=== PATIENT | female | born 1995 | race Caucasian/White ===

== ENCOUNTER 2017-02-04 23:06 | Emergency (ER) | payer BC, OTHER ==
[~2017-02-04 23:06] MED LIST: Sodium Chloride 0.9% 1,000 ML BAG ONE
[2017-02-04 23:49] LABS: Bilirubin Negative (Negative); Blood, Urine Small (Negative); Clarity Cloudy (Clear); Glucose, Urine (Dipstick) Negative (Negative); Leukocyte Trace (Negative); Nitrite Positive (Negative); Protein, Urine (Dipstick) Negative (Neg-Trace); Urobilinogen 0.2 mg/dL (0.2-1.0); pH, Urine 6.5 (5.0-9.0)
[2017-02-05 00:01] LABS: Bacteria/HPF 4+ HPF (None Seen); Renal Epithelial 0-3 HPF (0-3); Transitional Epithelial 0-3 HPF (0-3); WBC/HPF 21-50 HPF (0-3); Yeast-All Forms 2+ HPF (None Seen)
== END 2017-02-05 01:15 | disposition short-term general hospital (02) ==
LOC: MADERS 23:06
DX: O60.03 Preterm labor without delivery, third trimester (principal); Z3A.30 30 weeks gestation of pregnancy
CPT/HCPCS: 81003; 81015; 96360; J7050